=== PATIENT | male | born 1985 | race Caucasian/White ===

== ENCOUNTER 2017-01-24 17:28 | Emergency (ER) | payer OTHER ==
[~2017-01-24] VITALS: Ht 167.6 cm; Wt 66.5 kg
[2017-01-24 17:31] VITALS: Ht 167.6 cm; Wt 66.5 kg
[2017-01-24] MEDS ORDERED: HYDR-902 PO (20:37)
[2017-01-24] MEDS ORDERED: AZIT250T94 PO (20:37)
--- NOTE | 2017-01-24 20:42 | ERD ---
ER Documentation Chief Complaint Date/Time DATE: 01/24/17 TIME: 20:38 Chief Complaint SENT BY PCP FOR EVALUATION FOR ABNORMAL EKG, PT DENIES ANY SYMPTOMS HPI This is a 31-year-old male who is sent by clinic for abnormal EKG or bradycardia. 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 He saw one toll line mechanic who told him he needed a pacemaker then he saw another toll line mechanic who told him he does not need a pacemaker but that he is young and the lily is very active doing lots of cardiovascular training and thus this is why he has bradycardia. The patient was going to have gallbladder surgery and believe he before been coming to [facility] 4 months ago however the surgery was halted because they were too scared to do the surgery for a heart rate in the 50s and 40s without having a cardiac workup first. The patient is a completely asymptomatic. The patient says he can walk and run without any difficulty or shortness of breath or exertional chest pain or dizziness or syncope. The patient is complaining of right ear pain and sore throat on the right for the past 4 days. He went to an outside clinic told him he had earwax and a nasal infection and gave him some nasal ointment to put in. Is not having any fever but does have a sharp right throat pain when he swallows. No headache rash ROS All systems reviewed and are negative except as per history of present illness. Medications Home Meds Active Scripts Hydrocodone/Acetaminophen ([place] 10-325 Tablet) 1 Each Tablet, 1 TAB PO Q6H Y for PAIN, #20 TAB Prov:KYLEIGH FRIEDMAN DO 01/24/17 Azithromycin* (Zithromax*) 250 Mg Tablet, 250 MG PO .ZPACK DIRECTED, #6 TAB TAKE 500 MG (2 TABS) THE FIRST DAY THEN 250 MG (1 TAB) DAYS 2-5 Prov:KYLEIGH FRIEDMAN DO 01/24/17 Allergies Allergies: Coded Allergies: No Known Allergy (Unverified , 01/24/17) FmHx Family History: No coronary disease Physical Exam Vitals Vital Signs Date Time Temp Pulse Resp B/P Pulse Ox O2 Delivery O2 Flow Rate FiO2 01/24/17 17:31 98.1 43 16 119/71 100 Physical Exam Const: Well-developed, well-nourished Head: Atraumatic, normocephalic Eyes: Normal Conjunctiva, PERRLA, EOMI, normal sclera, no nystagmus ENT: Normal External Ears, right tympanic membrane slightly red, the right oropharynx has erythema to the tonsils with no exudate, no peritonsillar abscess nose and Mouth, moist mucus membranes. Neck: Full range of motion. No meningismus, no lymphadenopathy. Resp: Clear to auscultation bilaterally, no wheezing, rhonchi, rales Cardio: Regular rate and rhythm, no murmurs, S1 S2 present Abd: Soft, non tender x 4, non distended. Normal bowel sounds, no guarding or rebound, no pulsitile abdominal masses or bruits Skin: No petechiae or rashes, no ecchymosis , no maculopapular rash Back: No midline or flank tenderness Ext: No cyanosis, or edema, FROM x 4, normal inspection, neurovascularly intact x 4 Neur: Awake and alert, STR 5/5 x 4, sensation intact x 4, no focal findings, cerebellum intact Psych: Normal Mood and Affect Procedures/MDM The patient had bradycardia for 3 years and she is asymptomatic. I will refer him to Dr. Fowler of cardiology for a workup. He does not to get evaluated for this by do think is because he is young man who is very physically cardiovascularly in shape. In the monitor in the ER his heart rate varies between 42 and 57. He is in a sinus bradycardia EKG: Rate/Rhythm: Sinus bradycardia, normal axis QRS, ST, QT: NORMAL [place], QRS, QT] Sinus bradycardia NORMAL EKG Departure Diagnosis: Primary Impression: Pharyngitis Pharyngitis/tonsillitis etiology: unspecified etiology Qualified Code: J02.9 - Pharyngitis, unspecified etiology Additional Impression: Bradycardia Condition: Stable Patient Instructions: Bradycardia, Pharyngitis, Strep (Presumed) Referrals: RAFA FOWLER APOSTOLOS A. DO Jan 24, 2017 20:42
[2017-01-24 21:28] VITALS: BP 110/67; PULSE 43; RESP 16; TEMP 98.2
== END 2017-01-24 21:31 | disposition home or self-care (01) ==
LOC: E/R 17:28
DX: J02.9 Acute pharyngitis, unspecified (principal)
CPT/HCPCS: 93005; Z7502

== ENCOUNTER 2017-06-24 11:31 | Day surgery (SDC) | END 2017-06-24 17:20 | disposition home or self-care (01) ==

== ENCOUNTER 2017-07-19 17:27 | Emergency (ER) | END 2017-07-19 19:44 | disposition home or self-care (01) ==